=== PATIENT | female | born 1995 | race American Indian/Alaskan Native ===

== ENCOUNTER 2018-03-07 14:29 | Outpatient (CLI) | payer MEDICAID ==
[2018-03-07] MEDS ORDERED: LACTATED RINGERS 500 ML IV ONE (14:46)
[2018-03-07 15:53] VITALS: BP 109/62
[2018-03-07 16:06] LABS: Bacteria,Urine 1+ /HPF (Negative); Bilirubin,Urine NEG (Negative); Blood,Urine NEG (Negative); Color,Urine Yellow (Yellow); Protein,Urine <15 mg/dL mg/dL (Negative); Urobilinogen,Urine < 2.0 mg/dL (<2.0)
== END 2018-03-07 17:00 | disposition home or self-care (01) ==
LOC: TRG 14:29
PROVIDERS: ATTEND Obstetrics & Gynecology
DX: O47.02 False labor before 37 completed weeks of gestation, second trimester (principal); Z3A.22 22 weeks gestation of pregnancy
CPT/HCPCS: 81001; 87086

== ENCOUNTER 2021-11-21 18:24 | Outpatient (CLI) | payer MEDICAID ==
[2021-11-21 18:55] VITALS: BP 109/64
[2021-11-21] MEDS ORDERED: LACTATED RINGERS 500 ML IV ONE (19:03)
[2021-11-21 19:42] LABS: Bacteria,Urine 2+ /HPF (Negative); Bilirubin,Urine NEG (Negative); Blood,Urine NEG (Negative); Color,Urine Yellow (Yellow); Protein,Urine <15 mg/dL mg/dL (Negative); Urobilinogen,Urine < 2.0 mg/dL (<2.0)
[2021-11-21] MEDS ORDERED: ONDANSETRON 4 MG/2 ML INJ IV ONE (19:42)
[2021-11-21] MEDS ORDERED: diphenhydrAMINE 50 MG/ML VIAL IV ONE (20:33)
[2021-11-21] MEDS ORDERED: diphenhydrAMINE 50 MG/ML VIAL ONE (20:34)
--- NOTE | 2021-11-21 20:38 | Event Note ---
Date: 11/21/21 irregular ctx noted on toco, pt reports abd feels sore " like I have been throwing up" and she reports nausea. SVE 0/50/-3, CAT 1 FHT. no tenderness during palpation. Zofran for nausea (pt c/o arm tingling and redness after zofran administration, benadryl 50mg IVP given d/t rxn). pt OK to go home after observation d/t rxn to IV zofran.
== END 2021-11-21 21:15 | disposition home or self-care (01) ==
LOC: TRG 18:24 → APU 18:31 → TRG 21:15
PROVIDERS: ATTEND Obstetrics & Gynecology
DX: O62.9 Abnormality of forces of labor, unspecified (principal); O26.893 Other specified pregnancy related conditions, third trimester; R25.2 Cramp and spasm; R11.0 Nausea; Z3A.36 36 weeks gestation of pregnancy
CPT/HCPCS: 81001; 87086; 96374; 96375; J1200; J2405; J7120

== ENCOUNTER 2021-12-02 05:07 | Outpatient (CLI) | payer OTHER | END 2021-12-02 09:03 | disposition home or self-care (01) | LOC: TRG 05:07 → APU 05:08 → TRG 09:03 | PROVIDERS: ATTEND Obstetrics & Gynecology | DX: Z34.93 Encounter for supervision of normal pregnancy, unspecified, third trimester (principal); Z3A.37 37 weeks gestation of pregnancy | CPT/HCPCS: 59025 ==

== ENCOUNTER 2021-12-06 16:01 | Outpatient (CLI) | payer OTHER ==
[2021-12-06 16:26] VITALS: BP 120/69
== END 2021-12-06 19:30 | disposition home or self-care (01) ==
LOC: TRG 16:01 → APU 16:02 → TRG 19:30
PROVIDERS: ATTEND Obstetrics & Gynecology
DX: Z34.93 Encounter for supervision of normal pregnancy, unspecified, third trimester (principal); Z3A.38 38 weeks gestation of pregnancy
CPT/HCPCS: 59025